=== PATIENT | male | born 1995 | race Caucasian/White ===

== ENCOUNTER 2019-06-11 10:38 | Emergency (ER) | payer MEDICAID ==
[~2019-06-11] VITALS: Ht 172.7 cm; Wt 61.3 kg
[2019-06-11 10:42] VITALS: BP 114/76
== END 2019-06-11 12:53 | disposition home or self-care (01) ==
LOC: ER 10:39
DX: H61.23 Impacted cerumen, bilateral (principal); Z79.2 Long term (current) use of antibiotics; Z79.899 Other long term (current) drug therapy
CPT/HCPCS: 69209; 99282

== ENCOUNTER 2022-11-08 21:48 | Emergency (ER) | payer MEDICAID ==
[~2022-11-08] VITALS: Ht 172.7 cm; Wt 70.5 kg
[2022-11-08 21:50] VITALS: BP 127/80
[2022-11-08] MEDS ORDERED: CEPH-585 PO (22:50)
[2022-11-08] MEDS ORDERED: TETanus/Pertussis (Acell)/Diphther VAC/PF (Tdap-Adult) 0.5ml syringe IMVAC ONE (22:55)
[2022-11-08] MEDS ORDERED: cephalexin 250mg capsule PO ONE (22:55)
== END 2022-11-08 23:08 | disposition home or self-care (01) ==
LOC: ER 21:49
DX: L02.612 Cutaneous abscess of left foot (principal); Z88.8 Allergy status to other drugs, medicaments and biological substances; Z88.1 Allergy status to other antibiotic agents; Z59.00 Homelessness unspecified; Z56.0 Unemployment, unspecified
CPT/HCPCS: 10060; 73630; 90471; 90715; 99283

== ENCOUNTER 2023-02-27 14:54 | Emergency (ER) | payer MEDICAID ==
[~2023-02-27] VITALS: Ht 172.7 cm; Wt 77.3 kg
[2023-02-27 15:06] VITALS: BP 100/74
[2023-02-27] MEDS ORDERED: acetaminophen 325mg tablet PO ONE (15:10)
[2023-02-27] MEDS ORDERED: iohexol 300mg/ml 100ml inj. ONE (15:17)
--- NOTE | 2023-02-27 15:26 | NUR ---
case # [id number]
[2023-02-27] MEDS ORDERED: ACET-1008 PO (15:30)
== END 2023-02-27 16:51 | disposition home or self-care (01) ==
LOC: ER 14:54
DX: S10.91XA Abrasion of unspecified part of neck, initial encounter (principal); S20.319A Abrasion of unspecified front wall of thorax, initial encounter; W18.39XA Other fall on same level, initial encounter; Y93.89 Activity, other specified; Y92.89 Other specified places as the place of occurrence of the external cause; Y99.8 Other external cause status
CPT/HCPCS: 70450; 70491; 99285; J3490; Q9967

== ENCOUNTER 2023-08-13 01:57 | Emergency (ER) | payer MEDICAID ==
[~2023-08-13] VITALS: Ht 172.7 cm; Wt 71.8 kg
[2023-08-13 02:00] VITALS: BP 106/71; PULSE 85; RESP 18; TEMP 99.3; O2SAT 97
--- NOTE | 2023-08-13 02:33 | NUR ---
Patient given warm blankets, turkey sandwich, apple juice, and ice water. Denies further needs at this time.
--- NOTE | 2023-08-13 08:13 | NUR ---
spoke with pt mother about picking up pt. mother stated "i did not know he was in the emergency department". says she will pick him up today and that she lives 1[place]5 hours away.
--- NOTE | 2023-08-13 09:55 | NUR ---
pt mother arrived and is transporting pt home. d/c paperwork given and instructed to follow up with [facility] on tuesday for further assistance.
== END 2023-08-13 09:55 | disposition home or self-care (01) ==
LOC: ER 01:58
DX: F29 Unspecified psychosis not due to a substance or known physiological condition (principal); Z59.00 Homelessness unspecified
CPT/HCPCS: 99281

== ENCOUNTER 2023-08-28 17:34 | Inpatient (IN) | payer MEDICAID ==
[~2023-08-28] VITALS: Ht 172.7 cm; Wt 66.9 kg
[2023-08-28 18:27] LABS: BASOPHILS # (AUTO) 0.1 X10'3 (0-0.2); EOSINOPHILS % (AUTO) 0.4 % (0-6); HEMOGLOBIN 13.9 g/dl (14.0-17.9); LYMPHOCYTES # (AUTO) 1.4 X10'3 (1.1-4.8); LYMPHOCYTES % (AUTO) 26.6 % (21-51); MEAN CORPUSCULAR HEMOGLOBIN 30.3 PG (27.0-31.0); MEAN CORPUSCULAR HGB CONC 33.1 g/dL (33.0-36.5); MEAN CORPUSCULAR VOLUME 91.5 FL (78-98); MEAN PLATELET VOLUME 8.7 FL (7.4-10.4); MONOCYTES # (AUTO) 0.8 X10'3 (0-0.9); MONOCYTES % (AUTO) 14.6 % (2-12); NEUTROPHILS % (AUTO) 57.4 % (42-75); PLATELET COUNT 316 X10'3 (140-440); RED BLOOD COUNT 4.59 X10'6 (4.70-6.10); RED CELL DISTRIBUTION WIDTH 13.6 % (11.5-14.5); WHITE BLOOD COUNT 5.3 X10'3 (4.5-11.0)
[2023-08-28 18:39] LABS: ALANINE AMINOTRANSFERASE 27 U/L (12-78); ALBUMIN 4.1 G/DL (3.4-5.0); ALKALINE PHOSPHATASE 69 IU/L (46-116); ANION GAP 9 (8-16); ASPARTATE AMINO TRANSFERASE 17 U/L (10-37); BILIRUBIN,TOTAL 0.5 MG/DL (0.1-1.0); BLOOD UREA NITROGEN 22 MG/DL (7-18); BUN/CREATININE RATIO 20.2 (10.0-20.0); CALCIUM 8.9 MG/DL (8.5-10.1); CHLORIDE 103 MMOL/L (99-107); CREATININE 1.09 MG/DL (0.60-1.10); ETHANOL < 10 MG/DL (<10); GLUCOSE 88 MG/DL (70-104); POTASSIUM 3.9 MMOL/L (3.5-5.1); SODIUM 139 MMOL/L (135-145); TOTAL CARBON DIOXIDE 26.7 MMOL/L (24-32); TOTAL PROTEIN 8.1 G/DL (6.4-8.2); eCRCL 98 ML/MIN; eGFR 81 ML/MIN
[2023-08-29 03:51] LABS: URINE AMPHETAMINE SCREEN NEGATIVE (Neg); URINE BARBITUATE SCREEN NEGATIVE (Neg); URINE BENZODIAZEPINES SCREEN NEGATIVE (Neg); URINE CANNABINOID SCREEN POSITIVE (Neg); URINE COCAINE SCREEN NEGATIVE (Neg); URINE METHADONE SCREEN NEGATIVE (Neg); URINE OPIATE SCREEN NEGATIVE (Neg); URINE PHENCYCLIDINE SCREEN NEGATIVE (Neg)
[2023-08-29] MEDS: traZODone 50mg tablet PO SCH (23:30)
[2023-08-30] MEDS ORDERED: acetaminophen 325mg tablet PO PRN (10:20)
[2023-08-30] MEDS ORDERED: magnesium hydroxide 30ml (MOM) UD suspension PO PRN (10:20)
[2023-08-30] MEDS ORDERED: loperamide 2mg capsule PO PRN (10:20)
[2023-08-30] MEDS ORDERED: mag hydrox/Alum hydrox/simeth 30ml oral suspension PO PRN (10:20)
[2023-08-30 10:33] VITALS: BP 109/75; PULSE 89; RESP 18; TEMP 99.2; O2SAT 98
[2023-08-30] MEDS ORDERED: NO HOME MEDS (14:57)
[2023-08-30 19:10] VITALS: RESP 16; O2SAT 97
[2023-08-30 20:00] VITALS: BP 105/64; PULSE 62; RESP 16; TEMP 98.8; O2SAT 99
[2023-08-30] MEDS: prazosin 1mg capsule PO SCH ×2 (21:00→21:27)
[2023-08-30] MEDS: traZODone 50mg tablet PO SCH (21:27)
[2023-08-31 07:00] VITALS: RESP 12; O2SAT 100
[2023-08-31] MEDS: sertraline 50mg tablet PO SCH (07:45)
[2023-08-31 08:00] VITALS: BP 132/78; PULSE 76; RESP 12; TEMP 97.2; O2SAT 100
[2023-08-31 19:30] VITALS: RESP 18; O2SAT 98
[2023-08-31 20:00] VITALS: BP 114/63; PULSE 58; RESP 18; TEMP 98.4; O2SAT 98
[2023-08-31] MEDS: prazosin 1mg capsule PO SCH (20:55)
[2023-08-31] MEDS: traZODone 50mg tablet PO SCH (20:55)
[2023-09-01] MEDS: acetaminophen 325mg tablet PO PRN (06:48)
[2023-09-01 07:00] VITALS: BP 112/81; PULSE 98; RESP 16; TEMP 97.9; O2SAT 97
[2023-09-01] MEDS: sertraline 50mg tablet PO SCH (07:16)
[2023-09-01 19:14] LABS: HEMOGLOBIN A1C 5.3 % (4.5-6.2)
[2023-09-01 19:28] LABS: CHOL/HDL RATIO 3.7 (0.00-4.99); CHOLESTEROL 152 MG/DL (0-200); HDL CHOLESTEROL 41 MG/DL (35-60); LDL CHOLESTEROL 97 MG/DL (50-100); THYROID STIMULATING HORMONE 1.07 ulU/ml (0.34-4.50); TRIGLYCERIDES 62 MG/DL (20-135)
[2023-09-01 20:00] VITALS: BP 113/69; PULSE 67; RESP 16; TEMP 98.3; O2SAT 99
[2023-09-01] MEDS: traZODone 50mg tablet PO SCH (20:46)
[2023-09-01] MEDS: prazosin 1mg capsule PO SCH (20:46)
[2023-09-02 07:00] VITALS: RESP 16; O2SAT 100
[2023-09-02 08:00] VITALS: BP 127/83; PULSE 74; RESP 16; TEMP 97.5; O2SAT 100
[2023-09-02] MEDS: sertraline 50mg tablet PO SCH (09:01)
[2023-09-02] MEDS: acetaminophen 325mg tablet PO PRN (15:44)
[2023-09-02 19:00] VITALS: RESP 14; O2SAT 96
[2023-09-02 19:51] VITALS: BP 133/77; PULSE 86; RESP 14; TEMP 98.4; O2SAT 96
[2023-09-02] MEDS: traZODone 50mg tablet PO SCH (20:30)
[2023-09-02] MEDS: prazosin 1mg capsule PO SCH (20:30)
[2023-09-03 07:00] VITALS: RESP 16; O2SAT 98
[2023-09-03 08:00] VITALS: BP 115/69; PULSE 94; RESP 16; TEMP 97.3; O2SAT 98
[2023-09-03] MEDS: sertraline 50mg tablet PO SCH (08:28)
[2023-09-03] MEDS: acetaminophen 325mg tablet PO PRN (08:29)
[2023-09-03 19:00] VITALS: BP 119/65; PULSE 75; RESP 16; TEMP 99; O2SAT 98
[2023-09-03] MEDS: traZODone 50mg tablet PO SCH (20:40)
[2023-09-03] MEDS: prazosin 1mg capsule PO SCH (20:40)
[2023-09-04 07:00] VITALS: RESP 18; O2SAT 99
[2023-09-04 08:00] VITALS: BP 104/68; PULSE 80; RESP 18; TEMP 98.1; O2SAT 99
[2023-09-04] MEDS: sertraline 50mg tablet PO SCH (08:12)
[2023-09-04 19:00] VITALS: RESP 16; O2SAT 99
[2023-09-04 20:00] VITALS: BP 129/80; PULSE 80; RESP 16; TEMP 97.8; O2SAT 99
[2023-09-04] MEDS: traZODone 50mg tablet PO SCH (20:29)
[2023-09-04] MEDS: prazosin 1mg capsule PO SCH (20:29)
[2023-09-05 07:00] VITALS: RESP 12; O2SAT 99
[2023-09-05 08:00] VITALS: BP 104/72; PULSE 77; RESP 12; TEMP 97.8; O2SAT 99
[2023-09-05] MEDS: sertraline 50mg tablet PO SCH (08:07)
[2023-09-05 19:00] VITALS: RESP 16; O2SAT 98
[2023-09-05 19:31] VITALS: BP 121/77; PULSE 77; RESP 16; TEMP 98.7; O2SAT 98
[2023-09-05] MEDS: prazosin 1mg capsule PO SCH (20:15)
[2023-09-05] MEDS: traZODone 50mg tablet PO SCH (20:15)
[2023-09-06 07:00] VITALS: RESP 16; O2SAT 99
[2023-09-06] MEDS: sertraline 50mg tablet PO SCH (07:39)
[2023-09-06 08:00] VITALS: BP 98/67; PULSE 101; RESP 16; TEMP 98.1; O2SAT 99
[2023-09-06] MEDS ORDERED: PRAZ1CAP5 PO (12:28)
[2023-09-06] MEDS ORDERED: TRAZ-251 PO (12:28)
[2023-09-06] MEDS ORDERED: SERT-433 PO (12:28)
== END 2023-09-06 13:50 | disposition home or self-care (01) | DRG 754 ==
LOC: ER 17:35 → ED HOLD 08-30 08:20 → ADULT MH 08-30 10:13
PROVIDERS: ADMIT Psychiatry & Neurology Psychiatry; ATTEND Psychiatry & Neurology Psychiatry
DX: F32.9 Major depressive disorder, single episode, unspecified (principal); R45.851 Suicidal ideations; R45.850 Homicidal ideations; F32.A Depression, unspecified; F84.5 Asperger's syndrome; F41.9 Anxiety disorder, unspecified; F12.90 Cannabis use, unspecified, uncomplicated; Z20.822 Contact with and (suspected) exposure to COVID-19; F51.4 Sleep terrors [night terrors]; Z59.00 Homelessness unspecified; Z87.891 Personal history of nicotine dependence; Z56.0 Unemployment, unspecified; Z88.8 Allergy status to other drugs, medicaments and biological substances
CPT/HCPCS: 36415; 80053; 80061; 80305; 80320; 83036; 84443; 85025; 87081; 87811; 99285; A6250

== ENCOUNTER 2023-10-18 09:59 | Emergency (ER) | payer MEDICAID ==
[~2023-10-18] VITALS: Ht 172.7 cm; Wt 71.9 kg
[~2023-10-18 09:59] MED LIST: NO HOME MEDS; PRAZ1CAP5 PO; SERT-433 PO; TRAZ-251 PO
[2023-10-18 10:02] VITALS: BP 124/73; PULSE 91; RESP 16; O2SAT 98
[2023-10-18] MEDS ORDERED: AMOX500C2 PO (10:20)
[2023-10-18] MEDS ORDERED: CARB15DR91 RIGHT EAR (10:20)
[2023-10-18 10:24] VITALS: TEMP 97.9
== END 2023-10-18 10:27 | disposition home or self-care (01) ==
LOC: ER 10:00
DX: H61.23 Impacted cerumen, bilateral (principal); Z88.8 Allergy status to other drugs, medicaments and biological substances; Z91.041 Radiographic dye allergy status; Z79.899 Other long term (current) drug therapy
CPT/HCPCS: 99283

== ENCOUNTER 2023-12-10 11:27 | Emergency (ER) | payer MEDICAID ==
[~2023-12-10] VITALS: Ht 172.7 cm; Wt 68.5 kg
[~2023-12-10 11:27] MED LIST changes: +CARB15DR91 RIGHT EAR
[2023-12-10 11:30] VITALS: TEMP 98
[2023-12-10 16:05] LABS: BILIRUBIN,URINE MODERATE (Neg); CLARITY,URINE SLIGHTLY CLOUDY (Clear); COLOR,URINE YELLOW (Yellow); GLUCOSE, URINE NEGATIVE (Neg); KETONES,URINE 40 mg/dl (Neg); LEUKOCYTE ESTERASE ,URINE SMALL (Neg); NITRITES, URINE NEGATIVE (Neg); OCCULT BLOOD,URINE TRACE-INTACT (Neg); PROTEIN,URINE 100 mg/dl (Neg)
[2023-12-10 16:08] LABS: BASOPHILS # (AUTO) 0.1 X10'3 (0-0.2); BASOPHILS % (AUTO) 0.7 % (0-1); EOSINOPHILS # (AUTO) 0.1 X10'3 (0-0.9); EOSINOPHILS % (AUTO) 0.8 % (0-6); HEMATOCRIT 41.1 % (42.0-52.0); LYMPHOCYTES # (AUTO) 2.8 X10'3 (1.1-4.8); LYMPHOCYTES % (AUTO) 32.3 % (21-51); MEAN CORPUSCULAR HEMOGLOBIN 30.9 PG (27.0-31.0); MEAN CORPUSCULAR VOLUME 90.8 FL (78-98); MEAN PLATELET VOLUME 9.4 FL (7.4-10.4); MONOCYTES # (AUTO) 0.6 X10'3 (0-0.9); MONOCYTES % (AUTO) 6.6 % (2-12); NEUTROPHILS # (AUTO) 5.3 X10'3 (1.8-7.7); NEUTROPHILS % (AUTO) 59.6 % (42-75); PLATELET COUNT 287 X10'3 (140-440); RED BLOOD COUNT 4.53 X10'6 (4.70-6.10); RED CELL DISTRIBUTION WIDTH 13.3 % (11.5-14.5); WHITE BLOOD COUNT 8.8 X10'3 (4.5-11.0)
[2023-12-10 16:12] LABS: UA COLLECTION TYPE CLN CATCH MIDSTREAM; WBC,URINE 50-100 /HPF (0-4)
[2023-12-10 16:13] LABS: BACTERIA,URINE FEW /HPF (Neg); MUCUS STRANDS MODERATE /LPF (Neg); SQUAMOUS EPITHELIAL CELL,UR FEW /LPF (FEW)
[2023-12-10 16:18] LABS: ALBUMIN 4.2 G/DL (3.4-5.0); ANION GAP 9 (8-16); BLOOD UREA NITROGEN 11 MG/DL (7-18); BUN/CREATININE RATIO 12.2 (10.0-20.0); CALCIUM 8.7 MG/DL (8.5-10.1); CHLORIDE 106 MMOL/L (99-107); ETHANOL < 10 MG/DL (<10); GLUCOSE 91 MG/DL (70-104); POTASSIUM 3.7 MMOL/L (3.5-5.1); SODIUM 143 MMOL/L (135-145); eCRCL 119 ML/MIN; eGFR > 90 ML/MIN
[2023-12-10 16:21] LABS: URINE AMPHETAMINE SCREEN NEGATIVE (Neg); URINE BARBITUATE SCREEN NEGATIVE (Neg); URINE BENZODIAZEPINES SCREEN NEGATIVE (Neg); URINE CANNABINOID SCREEN POSITIVE (Neg); URINE COCAINE SCREEN NEGATIVE (Neg); URINE METHADONE SCREEN NEGATIVE (Neg); URINE OPIATE SCREEN NEGATIVE (Neg); URINE PHENCYCLIDINE SCREEN NEGATIVE (Neg)
[2023-12-11 07:49] VITALS: BP 105/75; PULSE 87; O2SAT 100
[2023-12-11 07:50] VITALS: RESP 18
== END 2023-12-11 12:55 | disposition home or self-care (01) ==
LOC: ER 11:28
DX: F32.A Depression, unspecified (principal); Z20.822 Contact with and (suspected) exposure to COVID-19; Z88.8 Allergy status to other drugs, medicaments and biological substances; Z91.041 Radiographic dye allergy status; Z79.899 Other long term (current) drug therapy
CPT/HCPCS: 36415; 80048; 80305; 80320; 81001; 85025; 87811; 99284